=== PATIENT | male | born 1980 | race Caucasian/White ===

== ENCOUNTER → 2018-11-11 | Emergency (ER) | payer OTHER ==
[~2018-11-11] VITALS: Ht 170.2 cm; Wt 72.0 kg
[2018-11-11 17:14] VITALS: BP 128/81
== END | disposition left against medical advice (07) ==
LOC: ER 17:00
DX: F41.9 Anxiety disorder, unspecified (principal); Z53.21 Procedure and treatment not carried out due to patient leaving prior to being seen by health care provider

== ENCOUNTER 2019-01-07 12:04 | Emergency (ER) | payer OTHER ==
[~2019-01-07] VITALS: Ht 177.8 cm; Wt 68.0 kg
[2019-01-07 12:25] VITALS: BP 123/68
--- NOTE | 2019-01-07 13:10 | NUR ---
PATIENT C/O RASH ON EXTREMS AND STATES THAT HE HAS "BUGS CRAWLING UNDER HIS SKIN". ER MD SPOKE WITH PATIENT, HOWEVER PATIENT IS NOT SATISFIED WITH DIAGNOSIS. PATIENT BECAME BELLIGERENT WITH STAFF AND HAD TO BE EXCORTED OUT OF ER PER STAFF MEMBERS.
== END 2019-01-07 13:28 | disposition home or self-care (01) ==
LOC: ER 12:04
DX: S60.812A Abrasion of left wrist, initial encounter (principal); B89 Unspecified parasitic disease; Z98.890 Other specified postprocedural states; Z88.8 Allergy status to other drugs, medicaments and biological substances; X58.XXXA Exposure to other specified factors, initial encounter; Y93.89 Activity, other specified; Y92.89 Other specified places as the place of occurrence of the external cause; Y99.8 Other external cause status
CPT/HCPCS: 99281